=== PATIENT | male | born 1995 | race Caucasian/White ===

== ENCOUNTER 2018-03-16 05:13 | Inpatient (IN) | payer BC ==
[2018-03-16] MEDS ORDERED: NS 2,000 ML IV ONE (05:25)
--- NOTE | 2018-03-16 05:29 | EDPHY ---
H & P Source: Patient, Police, EMS Time Seen by Provider: 03/16/18 05:26 HPI/ROS: HPI CHIEF COMPLAINT: Polysubstance overdose. M1 hold by police. SI. HISTORY OF PRESENT ILLNESS: 22-year-old male, unknown medical history presents emergency room by EMS with police on M1 hold for suicidal ideation. According to EMS and police they received a text stating that he was going to commit suicide. They make contact with the patient. He appeared highly intoxicated with alcohol, possibly other substance including Xanax, Adderall, Lamictal. Patient arrives to the emergency room is noted be tachycardic in the 140s to 150s, he slurring his speech, he is very large dilated pupils equal minimally reactive light approximately 9 mm minimally reactive light equal. Also has some rotary nystagmus on exam. He is not rigid. He has noted be tachycardic lying comfortably in resting in bed however appears to be highly intoxicated. Past Medical History: Unknown medical history Past Surgical History: Unknown surgical history Social History: Unknown at this time Family History: Unknown ROS REVIEW OF SYSTEMS: Limited due to patient's mental state intoxication Exam Constitutional intoxicated, smells of alcohol, slurring speech triage nursing summary reviewed, vital signs reviewed, sleepy vital signs noted be tachycardic. Eyes 9 mm equal however minimally reactive to light with some rotary nystagmus on exam HENT normal inspection, atraumatic, moist mucus membranes, no epistaxis, neck supple/ no meningismus, no raccoon eyes. Respiratory clear to auscultation bilaterally, normal breath sounds, no respiratory distress, no wheezing. Cardiovascular tachycardic without murmur regular rhythm, no murmur, no edema, distal pulses normal. Gastrointestinal soft, non-tender, no rebound, no guarding, normal bowel sounds, no distension, no pulsatile mass. Genitourinary no CVA tenderness. Musculoskeletal no rigidity, no midline vertebral tenderness, full range of motion, no calf swelling, no tenderness of extremities, no meningismus, good pulses, neurovascularly intact. Skin not flushed, pink, warm, & dry, no rash, skin atraumatic. Neurologic alert and orient x1 at this time moves everything appropriately. Not rigid. Differential Diagnosis: Includes but is not limited to in a particular order polysubstance overdose, drug overdose, suicidal ideation, Xanax overdose, alcohol intoxication, overdose on Lamictal, Adderall intoxication. 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 He will need medical evaluation medical clearance 1st. Watch closely for sedation and/or seizures. Re-evaluation: ED x-ray chest one view negative for acute cardiopulmonary disease. Interpreted by myself. 0601: Patient re-evaluated this time he is tachycardic 119. However protecting his airway. Responds to verbal stimuli. EKG interpretation by me on record in [employer] system. Impression time of EKG 5:59 a.m., sinus tach 120 left posterior fascicular block. Intervals are appropriate. No signs of acute ischemia. 0700: Patient here with polysubstance overdose. Lab work reviewed negative CT med if and salicylate level. Urine drug screen pending. Alcohol level pending. Patient is tachycardic, and intoxicated with large pupils equal, minimally reactive tonight. Patient will need more time to sober and will need to be re-evaluated. Once medically cleared he can have a mental health evaluation. Signed over at 7:[address] Buckner. (Skinny Garcia) Constitutional: Initial Vital Signs Temperature (C) 37.1 C 03/16/18 05:12 Heart Rate 130 H 03/16/18 05:12 Respiratory Rate 16 03/16/18 05:12 Blood Pressure 153/84 H 03/16/18 05:12 O2 Sat (%) 93 03/16/18 05:12 O2 Delivery Mode Room Air O2 (L/minute) 2 Allergies/Adverse Reactions: No Known Allergies Allergy (Unverified 03/17/18 08:40) Home Medications: Medication Instructions Recorded ALPRAZolam [Alprazolam] 2 mg PO BID 03/16/18 Dextroamphetamine/Amphetamine 30 mg PO TID 03/16/18 [Adderall 30 mg Tablet] Zolpidem Tartrate [Ambien 5MG (*)] 10 mg PO HS 03/16/18 lamoTRIgine [LaMICtal] 75 mg PO DAILY 03/16/18 Medical Decision Making Other Provider: I assumed care at 0700 - Dr. Garcia and I re-evaluated the patient together. He is protecting his airway, but quite altered, with somewhat unusual U-shaped semi-rotatory nystagmus noted. We will continue to observe in the ED. 0930: Re-examined patient. He appears somewhat improved, and is able to answer questions. He tells me took only vodka and Xanax. His nystagmus-like eye movements seem to have ceased. Will continue to monitor. 1320: Re-examined patient. He is still extremely altered and intoxicated. Still believes he is in his own apartment and does not know what happened. He denies drug use other than alcohol and Xanax, but alcohol level on arrival was negative. 14:25 Plan to admit patient as he is still acutely altered. Consulted with hospitalist service. Dr. Ghotra accepts admission for overdose, altered mental status. He is on an M1 hold by police. Patient will be admitted to ICU at this time for further management and one-on-one observation. (Dario Buckner) - Data Points Laboratory Results: Laboratory Results 03/16/18 05:00 03/16/18 05:00 Medications Given: Sodium Chloride (Ns) 1,000 mls @ 100 mls/hr IV CONT ATUL Stop: 09/12/18 15:29 Last Admin: 03/17/18 00:50 Dose: 1,000 mls Discontinued Medications Sodium Chloride (Ns) 2,000 mls @ 0 mls/hr IV EDNOW ONE; Wide Open PRN Reason: Protocol Stop: 03/16/18 05:26 Last Admin: 03/16/18 05:35 Dose: 2,000 mls Influenza Virus Vaccine Quadrival (Flulaval Quad [id number] (6mo+)) 0.5 ml IM .ONCE ONE Stop: 03/17/18 08:18 Last Admin: 03/17/18 08:40 Dose: 0.5 ml Departure - Departure Disposition: [facility] Clinical Impression: Polysubstance overdose Qualifiers: Encounter type: initial encounter Injury intent: intentional self-harm Qualified Code(s): T50.902A - Poisoning by unspecified drugs, medicaments and biological substances, intentional self-harm, initial encounter Condition: Serious
[2018-03-16 05:32] LABS: PLATELET COUNT 294 10^3/uL (150-400)
[2018-03-16 05:43] LABS: INR 0.9 (0.83-1.16); PROTIME(PATIENT) 12.4 SEC (12.0-15.0)
[2018-03-16] MEDS ORDERED: ONDANSETRON DISINTEGRATING 4 MG TAB PO PRN (15:29)
[2018-03-16] MEDS ORDERED: IBUPROFEN 200 MG TAB PO PRN (15:29)
[2018-03-16] MEDS ORDERED: ONDANSETRON 4 MG/2 ML VIAL IVP PRN (15:29)
[2018-03-16] MEDS ORDERED: LORazepam 2 MG/ML INJ IVP PRN (15:29)
[2018-03-16] MEDS ORDERED: ACETAMINOPHEN 325 MG TAB PO PRN (15:29)
[2018-03-16] MEDS ORDERED: PROMETHAZINE HCL 25 MG/ML INJ IVP PRN (15:29)
[2018-03-16] MEDS ORDERED: NS 1,000 ML IV SCH (15:30)
--- NOTE | 2018-03-16 16:18 | PDGENHP ---
History and Physical - Chief Complaint suicide attempt - History of Present Illness 22 yo M with no known PMH brought in by police on M1 hold after texting 911 that he was going to try to kill himself. This history is severely limited by patients somnolence and ongoing intoxication. He was able to state to me that he doesn't remember why he overdosed and was not able to tell me what he took specifically, but did state that he only took the medications he was prescribed by his doctor along with vodka. He asked what his KRISTOPHER was as he has a KRISTOPHER at home and wants to know if it was correct in the level it obtained. He denies any pain, nausea, vomiting, numbness or weakness. He denies active suicidal ideation currently. His pupils were noted to be very dilated and he was asked specifically if he took any hallucinogens or cold medicine. History Information - Allergies/Home Medication List Allergies/Adverse Reactions: Unable to Assess Allergy (Unverified 03/16/18 15:21) Home Medications: ALPRAZolam [Alprazolam] 2 mg PO BID 03/16/18 [Last Taken Unknown] Dextroamphetamine/Amphetamine [Adderall 30 mg Tablet] 30 mg PO TID 03/16/18 [ Last Taken Unknown] Zolpidem Tartrate [Ambien 5MG (*)] 10 mg PO HS 03/16/18 [Last Taken Unknown] lamoTRIgine [LaMICtal] 75 mg PO DAILY 03/16/18 [Last Taken Unknown] I have personally reviewed and updated: family history, medical history, social history, surgical history Past Medical History: unobtainable 2/2 patients mental status - Past Medical History Additional medical history: unobtainable 2/2 patients mental status - Family History Additional family history: unobtainable 2/2 patients mental status - Social History Smoking Status: Unknown if ever smoked Additional social history: unobtainable 2/2 patients mental status Review of Systems Review of Systems: unobtainable 2/2 patients mental status Physical Exam Physical Exam: Temp Pulse Resp BP Pulse Ox 37.1 C 101 H 15 144/82 H 94 03/16/18 05:12 03/16/18 15:54 03/16/18 15:54 03/16/18 15:54 03/16/18 15:54 Constitutional: no apparent distress, appears nourished Eyes: PERRL, anicteric sclera, other (pupils significantly dilated) Ears, Nose, Mouth, Throat: moist mucous membranes, hearing normal Cardiovascular: regular rate and rhythym, no murmur, rub, or gallop, No edema Respiratory: no respiratory distress, no rales or rhonchi Gastrointestinal: normoactive bowel sounds, soft, non-tender abdomen Genitourinary: no bladder tenderness Skin: warm, normal color Musculoskeletal: full muscle strength, no muscle tenderness Neurologic: CN II-XII Intact, No AAOx3, No weakness, No numbness Psychiatric: encephalopathic Lab Data & Imaging Review 03/16/18 05:00 03/16/18 05:00 WBC 7.61 10^3/uL (3.80-9.50) 03/16/18 05:00 RBC 5.81 10^6/uL (4.40-6.38) 03/16/18 05:00 Hgb 17.7 g/dL (13.7-17.5) H 03/16/18 05:00 Hct 51.3 % (40.0-51.0) H 03/16/18 05:00 MCV 88.3 fL (81.5-99.8) 03/16/18 05:00 MCH 30.5 pg (27.9-34.1) 03/16/18 05:00 MCHC 34.5 g/dL (32.4-36.7) 03/16/18 05:00 RDW 12.4 % (11.5-15.2) 03/16/18 05:00 Plt Count 294 10^3/uL (150-400) 03/16/18 05:00 MPV 9.3 fL (8.7-11.7) 03/16/18 05:00 Neut % (Auto) 62.2 % (39.3-74.2) 03/16/18 05:00 Lymph % (Auto) 29.0 % (15.0-45.0) 03/16/18 05:00 [place] % (Auto) 7.5 % (4.5-13.0) 03/16/18 05:00 Eos % (Auto) 0.8 % (0.6-7.6) 03/16/18 05:00 Baso % (Auto) 0.4 % (0.3-1.7) 03/16/18 05:00 Nucleat RBC Rel Count 0.0 % (0.0-0.2) 03/16/18 05:00 Absolute Neuts (auto) 4.73 10^3/uL (1.70-6.50) 03/16/18 05:00 Absolute Lymphs (auto) 2.21 10^3/uL (1.00-3.00) 03/16/18 05:00 Absolute Monos (auto) 0.57 10^3/uL (0.30-0.80) 03/16/18 05:00 Absolute Eos (auto) 0.06 10^3/uL (0.03-0.40) 03/16/18 05:00 Absolute Basos (auto) 0.03 10^3/uL (0.02-0.10) 03/16/18 05:00 Absolute Nucleated RBC 0.00 10^3/uL (0-0.01) 03/16/18 05:00 Immature Gran % 0.1 % (0.0-1.1) 03/16/18 05:00 Immature Gran # 0.01 10^3/uL (0.00-0.10) 03/16/18 05:00 PT 12.4 SEC (12.0-15.0) 03/16/18 05:00 INR 0.90 (0.83-1.16) 03/16/18 05:00 APTT 27.5 SEC (23.0-38.0) 03/16/18 05:00 Sodium 140 mEq/L (135-145) 03/16/18 05:00 Potassium 4.0 mEq/L (3.5-5.2) 03/16/18 05:00 Chloride 103 mEq/L (97-110) 03/16/18 05:00 Carbon Dioxide 27 mEq/l (22-31) 03/16/18 05:00 Anion Gap 10 mEq/L (6-14) 03/16/18 05:00 BUN 16 mg/dL (7-23) 03/16/18 05:00 Creatinine 1.0 mg/dL (0.7-1.3) 03/16/18 05:00 Estimated GFR > 60 03/16/18 05:00 Glucose 101 mg/dL (70-100) H 03/16/18 05:00 Calcium 9.9 mg/dL (8.5-10.4) 03/16/18 05:00 Magnesium 2.0 mg/dL (1.6-2.3) 03/16/18 05:00 Total Bilirubin 0.6 mg/dL (0.1-1.4) 03/16/18 05:00 Conjugated Bilirubin 0.3 mg/dL (0.0-0.5) 03/16/18 05:00 Unconjugated Bilirubin 0.3 mg/dL (0.0-1.1) 03/16/18 05:00 AST 38 IU/L (17-59) 03/16/18 05:00 ALT 54 IU/L (21-72) 03/16/18 05:00 Alkaline Phosphatase 68 IU/L (38-126) 03/16/18 05:00 Troponin I < 0.012 ng/mL (0.000-0.034) 03/16/18 05:00 Total Protein 8.3 g/dL (6.3-8.2) H 03/16/18 05:00 Albumin 5.3 g/dL (3.5-5.0) H 03/16/18 05:00 Lipase 46 IU/L (23-300) 03/16/18 05:00 Salicylates < 1.0 mg/dL (2.0-20.0) L 03/16/18 05:00 Acetaminophen < 10 mcg/mL (10-30) L 03/16/18 05:00 Ethyl Alcohol < 10 mg/dL (0-10) 03/16/18 05:00 Visualized and Interpreted Chest x-ray results: Yes Chest X-Ray results: no infiltrate Visualized and Interpreted EKG results: Yes EKG Interpretation: Positive for: normal sinsus rhythm Assessment & Plan Assessment: Polysubstance overdose (Acute) 22 yo M with unknown PMH presenting with what sounds like intentional overdose # polysubstance overdose: somewhat unclear exactly what patient took but presumably includes vodka, xanax, lamictal, adderall and ambien based on his home medications. Patient is arousable, HD stable, protecting his airway, lab studies normal and no focal neurological findings however remains overtly intoxicated on exam with inability to ambulate safely or answer questions appropriately. At this point, patient being held on M1 hold and will be monitored in ICU overnight pending medical clearance for TLC evaluation. Monitoring rhythm on telemetry, no qtc prolongation currently. # suicide attempt: presumed intentional overdose based on patients contacting 911 stating he was going to kill himself, really unable to answer questions about that currently but denies active suicidality currently , as above # volume depletion: appears hemoconcentrated by labs, altered and not really able to take po currently, will continue gentle IVF overnight # observation status Patient new to my care. Old records reviewed and summarized as above. Care plan reviewed with ER doctor including plans for observation overnight.
--- NOTE | 2018-03-17 07:51 | CPEKG ---
Test Reason : OPEN Blood Pressure : / mmHG Vent. Rate : 120 BPM Atrial Rate : 120 BPM P-R Int : 157 ms QRS Dur : 094 ms QT Int : 323 ms P-R-T Axes : 073 146 044 degrees QTc Int : 457 ms Sinus tachycardia Left posterior fascicular block Anterior infarct, old Confirmed by Skinny Garcia ([id number]) on 03/17/2018 7:50:58 AM Referred By: Confirmed By:Skinny Garcia
--- NOTE | 2018-03-17 09:19 | PDMN ---
Medical Necessity Medical necessity: MCG M153 drug ingestion or OD A-1 day : intentional OD pt on M1 hold danger to self, AMS, urinary retention with associated pupillary dilation - strong concern for anticholinergic toxicity. anticipate > 2 MN ongoing med nec care, further monitoring eval and tx
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
--- NOTE | 2018-03-18 11:24 | ASMTTLCEVL ---
TLC Evaluation - Basic Information Evaluation Start Date and 03/17/2018 12:00 PM Time Hospital Status Answers: M1 Hold 72-hr M1 Hold Start Date 03/16/2018 04:30 AM and Time Patient statement Notes: "It was New Years. I wasn't doing anything. Usually, I'm not a seasonal depressive type of person. First time I acted on it even though I assumed I would survive due to my high tolerance." Narrative Notes: Pt is a 22 year old male who presented initially to [facility] ED on an M1 on 03/16/17 hold by [employer] and EMS. According to EMS and police, they received a text from pt stating that he was going to commit suicide. They made contact with the pt who appeared highly intoxicated with alcohol, possibly other substances, including Xanax, Adderall and Lamictal. Per ED notes 03/16/17: Pt arrives to the ED is noted to be tachycardia in the 140s to 150s, he is slurring his speech, he has very large dilated pupils. Pt was transferred to ICU. Pt reports he has had SI off and on since his brain injury at age 13. Pt reports his SI is not chronic but states, " It depends. If I have a busy day, I don't think about it but with days like this, when I am just sitting in a room then I feel sad." Pt reports he can't identify any one stressor that led up to his overdose or exactly what he took. 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 Mother's phone number was disconnected and father's phone number's vmail has not been set up. Vmessage was left with psychiatrist. Dr. Van Kern. Diagnosis History Notes: Pt reports a hx of ADHD, depression and anxiety. Prior suicide attempts Notes: Pt denied any SA but stated he has had SI off and on for the past 9 years . Prior hospitalizations Notes: Pt denied any hospitalizations but stated [facility] Treatment Responses Notes: Unknown History of violence Notes: Pt denied any HI. Therapist: None Psychiatrist: Dr Van Kern Medications (name, dosage, route, freq uency) Notes: Adderall 30mg TID; Xanax 4mg; Ambien 10mg PRN; Allergies/Reaction Notes: nka Sleep Notes: wnl Appetite Notes: Pt reported he initially lost a large amount of weight while taking the adderall but has since regained 20 lbs Medical/Surgical history Notes: Pt reports he has sustained approx 6-7 concussions, 4 LOC. Pt reports a brain injury at age 13 while playing hockey and falling into a brick wall head first. Substance use history (frequency, intensity, his tory, duration) Notes: Pt denied any drug use but reports etoh use about 3x a week and states he drinks about 5 drinks and drinks "whatever." Pt reports 5 drinks just gets him, "buzzed" and states he believes it's due to his high tolerance. Utox positive for amphetamines and benzodiazepines and his bal was.0. Family composition Notes: Pt reports his father lives in [place]. Pt did not say where his mother lives but states she has a lucBtiques business. Pt reports he has 1 step sister at [facility] and 1 step brother. He reports a good relationship with his family. Need for family Answers: No participation in patient's care Family psychiatric/substance abuse history Notes: Pt reports his paternal uncle may have had a gambling problem. No other mental illness noted. Developmental history Notes: Pt reports he was dx with ADHD at age 5 or 6. He reports he sustained multiple concussions as a child with LOC. Pt's parents when he was 5 and he was forced to see a therapist which he resented. Pt reports he felt happy that his parents because he was tired of hearing them fight all the time. Pt denied any childhood abuse. Abuse concerns Answers: None Marital status/children Notes: Unmarried, no children. Living situation Notes: Pt lives in [place] with two roommates. Sexual history/orientation Notes: Heterosexual. Peer support/family strengths Notes: Pt reports having a good peer support system. He reports having two good friends. Education level/history Notes: Pt reported he completed his GED. Work history Notes: Pt is not currently working. 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 He stated they wanted him to manage the [employer] but he was not interested. Notes: None reported. Legal Notes: None reported. Congregational/Spiritual Notes: Pt reports he is agnostic. Leisure Notes: Pt reports he enjoys playing video games. Collateral Notes: Dr. Jeremy Kern Per Dr. Kern pt has tx resistant depression and is currently on a lamictal trial at 150mg. Dr. Araujo states pt has had success on the adderall and xanax. Dr. Kern stated they have tried and failed with multiple meds. Pt at baseline has some speech latency but is conversational Dr. Kern has been seeing pt since August 2017 and saw pt last week on 03/11/18 and stated he did not appear suicidal at that time. [facility] met with pt.'s father, Ralph. Father expressed concern about pt.'s mental health and safety and was supportive of pt.'s admission for additional MH treatment. Patient's strengths Answers: Intelligent (Please select at least TWO strengths): Willingness [facility] Evaluation - Mental Status Exam Appearance: Answers: Appropriate Eye Contact: Answers: Good/Direct Mood: Answers: Euthymic Affect: Answers: Indifferent Behavior: Answers: Cooperative Sedated Speech: Answers: Relevant Irrelevant Logical Clear Slowed Slurred Soft Thought Process: Answers: Oriented Distracted Intact Insight: Answers: Fair Judgement: Answers: Poor Manic Signs/Symptoms Answers: Impulsivity Irritability Depression Answers: Difficulty Concentrating Signs/Symptoms: Diminished Interest Flat Affect Hopelessness Sad Mood Withdrawn Anxiety Signs/Symptoms Answers: Generalized Anxiety Hallucinations: Answers: None Pt reported to have Answers: Yes suicidal/self-injuring ideation/behavior? Pt reported to be making Answers: Yes suicidal/self-injuring threats? Pt reported to have Answers: No aggression/assault ideation/behavior? Pt reported to be making Answers: No aggression/assault threats? Ideation/behavior is Answers: Yes chronic? Patient has a specific Answers: Yes plan? Pt has access to means to Answers: Yes execute the plan? Ideation involves Answers: Yes serious/lethal intent? Ideation has Answers: No delusional/hallucinatory content? History of Answers: Yes suicidal/self-injuring ideation, behavior, or threats? History of Answers: No aggressive/assaultive ideation, behavior, or threats? History of serious Answers: No physical harm to self/others while in treatment setting? [facility] Evaluation - Suicide/Homicide Risk Suicide Risk Factors: Answers: < 20 or > 40 Years of Age Agitation Financial Difficulties Flat Affect Hopelessness Impulsivity Major Depression Single None Homicide/violence risk Answers: None factors: Current Suicidal Answers: Yes Ideation? Current Suicide Ideation Pt reports he has SI off and on for the past 9 Frequency: years. pt is denying Si at this time. Current Suicidal Ideation Answers: Yes in the Past 48 Hours? Current Suicidal Ideation Answers: Yes in the Past Month? Current Suicidal Answers: Yes Ideation, Worst Ever? Suicide Internal Answers: Absence of Psychosis Protective Factors: Suicide External Answers: Social Support Protective Factors: Ranking of patient's Answers: Severe suicidal risk: Ranking of patient's Answers: Low homicidal risk: TLC Evaluation - Wrap-up BDI Total Score: 26 BDI Question #2 Score: 1 BDI Question #9 Score: 2 BSS Total Score: 6 AXIS I Diagnosis (include DSM-V and ICD-10 codes), must also be entered in [employer], which is the source of truth. Notes: Attention Deficit/Hyperactivity Disorder combined presentation 314.01 (F90.2) Major Depressive Disorder, single episode, severe 296.23 (F32.2) In consultation with [facility] Hospitalist, Gracie Rich MD and on-call clinician, Delroy Saha APN, both concurred that pt appears to meet 27-65 criteria requiring psychiatric hospitalization as pt appears to be at risk of harm to self/others/gravely disabled due to a mental illness condition. Pt was given the 3N prohibited belongings list while in the ED. Evaluation End Date and 03/17/2018 02:00 PM Time (HH:[facility]): Date Signed: 03/18/2018 11:23 AM Electronically Signed By:Christina Chang
--- NOTE | 2018-03-18 11:25 | ASMTTCLDSP ---
TLC Discharge Disposition Disposition: Answers: Admit Disposition Notes: Notes: In consultation with [facility] Hospitalist, Gracie Rich MD and on-call clinician, Delroy Saha APN, both concurred that pt appears to meet 27-65 criteria requiring psychiatric hospitalization as pt appears to be at risk of harm to self/others/gravely disabled due to a mental illness condition. Pt was given the 3N prohibited belongings list while in the ED. Discharge Concerns/Recommendations: Notes: Admit to 3N Was patient given the Answers: Yes Inpatient Behavioral Health Prohibited Belongings List while in the ED? For inpatient Delroy Saha APN admission, the following psychiatrist agreed to accept patient for admission to Behavioral Health ([facility]): Type of Hold: Answers: M1/72-hour Hold Date Signed: 03/18/2018 11:25 AM Electronically Signed By:Christina Chang
--- NOTE | 2018-03-18 15:10 | ASMTCMCOM ---
CM Note CM Note Notes: Patient will be admitted to for inpatient behavioral health care. Transport arranged for 4:00PM today via [facility]. PCS form and face sheet left at the assistant front end manager for [facility]. No further needs. Date Signed: 03/18/2018 03:09 PM Electronically Signed By:Malka Hoffman LCSW
[2018-03-18 15:44] VITALS: BP 145/90
== END 2018-03-18 15:52 | DRG 918 ==
LOC: EDUNIT# → OBSVTOIN 14:40 → EEVIPCON 14:40 → F2N 14:40
PROVIDERS: ADMIT Internal Medicine; ATTEND Internal Medicine
DX: T44.3X2A Poisoning by other parasympatholytics [anticholinergics and antimuscarinics] and spasmolytics, intentional self-harm, initial encounter (principal); T51.0X2A Toxic effect of ethanol, intentional self-harm, initial encounter; T42.4X2A Poisoning by benzodiazepines, intentional self-harm, initial encounter; T42.72XA Poisoning by unspecified antiepileptic and sedative-hypnotic drugs, intentional self-harm, initial encounter; R33.0 Drug induced retention of urine; F32.9 Major depressive disorder, single episode, unspecified; F90.9 Attention-deficit hyperactivity disorder, unspecified type; F41.9 Anxiety disorder, unspecified; Z23 Encounter for immunization
CPT/HCPCS: 80305; 80307; 97161-GP; 97165-GO; G0008; G0480

== ENCOUNTER 2018-03-18 16:10 | Inpatient (IN) | payer BC ==
[2018-03-18] MEDS ORDERED: MAG HYDROX/AL HYDROX/SIMETH 30 ML UDCUP PO PRN (17:12)
[2018-03-18] MEDS ORDERED: NICOTINE POLACRILEX 2 MG GUM B PRN (17:12)
[2018-03-18] MEDS ORDERED: OLANZapine 10 MG TAB PO PRN (17:12)
[2018-03-18] MEDS ORDERED: ACETAMINOPHEN 325 MG TAB PO PRN (17:12)
[2018-03-18] MEDS ORDERED: MAGNESIUM HYDROXIDE 30 ML UDCUP PO PRN (17:12)
[2018-03-18] MEDS ORDERED: chlordiazePOXIDE 25 MG CAP PO PRN (17:16)
--- NOTE | 2018-03-19 09:24 | ASMTBHMTP ---
Master Treatment Plan Master Treatment Plan Answers: Depressed Mood with for: Suicidal Ideation Date: 03/19/2018 Diagnosis on Admission: Polysubstance overdose Expected length of stay: 3-5 Days Reason for admission: Notes: Per TLC Evaluation - Pt. is a 22 year old male who presented initially to [facility] ED on an M1 on 03/16/17 hold by [employer] and EMS. According to EMS and police, they received a text from pt. stating that he was going to commit suicide. They made contact with the pt. who appeared highly intoxicated with alcohol, possibly other substances, including Xanax, Adderall and Lamictal. Per ED notes 03/16/17: Pt. arrives to the ED is noted to be tachycardia in the 140s to 150s, he is slurring his speech, he has very large dilated pupils. Pt. was transferred to ICU. Pt. reports he has had SI off and on since his brain injury at age 13. Pt. reports his SI is not chronic but states, "it depends. If I have a busy day, I don't think about it but with days like this, when I am just sitting in a room then I feel sad. " Pt. reports he can't identify any one stressor that led up to his overdose or exactly what he took. Pt. stated he has been waning away from his friends and has had some financial stress but stated, "Financial stress wouldn't make me attempt suicide." Pt. denied SI just stated, "I'd rather not be in this hospital." This script writer attempted to reach out to his parents. Mother's phone number was disconnected and father's phone's number's vmail has not been set up. Vmessage was left with psychiatrist. Dr. Van Kern. Patient's stated presenting problems: Notes: Pt. stated he "had a suicidal episode" adding he overdosed. Patient's goals for treatment: Notes: "To get out" and "to manage myself better" Patient's strengths: Notes: "plant maintenance engineer, master of none" and "like math" Identify supports outside of hospital: Notes: Dad, sister, step-mother, mother, and friends Discharge criteria: Notes: Suicidal ideation will resolve and patient will have a plan to safely manage recurrent suicidal ideation. Initial disposition plan/considerations: Notes: To return home and to his job with [employer] Master Treatment Plan Required Signatures Psychiatrist signature: Answers: Davidson Navarro MD: RN on-shift signature: Answers: RN: Patient signature: Answers: Patient: Date Signed: 03/19/2018 09:24 AM Electronically Signed By:Beatrice Orozco
--- NOTE | 2018-03-19 16:08 | ASMTBHFAM ---
Notes Note: Notes: Pt's step-mother, Rach ([phone]) called and left a message for CC. [facility] stated she took pictures of the pt's suicide note and rough drafts. [facility] stated pt. appeared to have stocked his medications, stating pt's attempt was "pre meditated". [facility] stated she recently pt's FOC and this has been difficult for the pt. [facility] stated pt. had genetic testing and is an "ultra metabalizer" adding he has a high tolerance to medications. [facility] stated pt. has "treatment resistive depression" and asked if ketamine was going to be considered for the pt. [facility] stated pt. has an "addictive behavior" and is "possibly an alcoholic". [facility] stated pt. is "very intelligent" adding the pt is also "very sneaky". [facility] stated she is "extremely worried" about the pt. Date Signed: 03/19/2018 04:08 PM Electronically Signed By:Beatrice Orozco
--- NOTE | 2018-03-19 16:13 | ASMTCMCOM ---
CM Note CM Note Notes: Pt and CC completed MTP, signed and placed in chart. Pt. reports feeling "mixed bad" about surviving his suicide attempt. Pt. stated he "felt a lot of guilt and shame". Pt. stated his goal it "to get out" adding "I know I'm not a danger to myself or others". Pt. stated he drinks alcohol "occasionally" adding it depends on if he is hanging out with friends. Pt. stated he usually drinks 3-4 times a week and usually has "4ish to 5" drinks per sitting. Pt. stated "I don't think it's an issue" about his drinking habits. Pt. denied using THC or other substances. Pt. stated he is "not a fan of group therapy", CC encouraged pt to attempt to attend groups. Pt. presents as flat, alert, calm, lacking insight, fair eye contact, and cooperative. Staff report pt. sleeping 7 hours and not wanting to take any medications. Date Signed: 03/19/2018 04:13 PM Electronically Signed By:Beatrice Orozco
--- NOTE | 2018-03-19 19:05 | BAPA ---
DATE OF SERVICE: 03/19/2018 CHIEF COMPLAINT: "It was New Year's, I wasn't doing anything. Usually, I am not a seasonal depressive type of person, first time I acted on it, even though I assumed I would survive due to my high tolerance." HISTORY OF PRESENT ILLNESS: The patient is a 22-year-old man who presented to the emergency room by EMS with police on an M1 hold. The police received a text stating that the patient was going to commit suicide. They made contact with the patient. He appeared highly intoxicated with alcohol, possibly other substances, including his prescription medications, Xanax, Adderall, and Lamictal. In the emergency room, he was tachycardic, slurred speech, dilated pupils, minimally reactive to light, rotary nystagmus, all of which were likely the result of intoxication/polysubstance overdose. The patient was admitted to the ICU. Dr. Ghotra saw the patient in the ICU and said that her ability to collect collateral information and the history from the patient was severely limited by the patient's somnolence and intoxication. He said that he does not remember why he overdosed and was not able to tell Dr. Ghotra specifically what he took. He only knows that he took the medicines that were prescribed by his outpatient psychiatrist along with vodka. The patient was discharged from the ICU on 03/18/2018 and transferred to the inpatient Behavioral Health Unit on . Prior to his transfer, he was seen by the [facility] coil winding machines set up mechanic, who noted that the patient stated that he had suicidal thoughts on and off since his brain injury when he was 13 years old. He says that he does not always have thoughts of suicide. He told the [facility] coil winding machines set up mechanic "it depends if I have a busy day. I don't think about it, but with days like this, when I'm just sitting in a room, then I feel sad." The patient told the coil winding machines set up mechanic that he could not identify any single stressor that led up to his overdose. He says that he has been more withdrawn. He has had less contact with his friends. He says that he has had some financial stress lately. He says that it was a combination of all those things weighing on his mind that made him feel more depressed and pushed him over the edge and led him to act on his impulsive thoughts of overdosing. When this MD met with the patient on the inpatient Behavioral Health Services Unit, he was pleasant, calm, cooperative. He was alert and oriented x4. He denied any symptoms of benzodiazepine withdrawal. He has been off benzodiazepines for 3 days, although his benzodiazepine level was quite high. While he was in the ICU, they susan blood. He still does not remember how many pills or how much medication he took. Says that he now feels guilty about his overdose. When MD asked how the patient felt about surviving his suicide attempt, he said "it was a mixed bag." He says that he is not sure that he will never do it again, but he says that he is not having any thoughts currently about ending his life or wanting to harm himself. He says "I just want to be me." When MD asked the patient what his thoughts about medications are, he says "I don't want to take any meds for anything." The patient states that he had previously talked with his outpatient psychiatrist, Jeremy Kern, about tapering him off medications. He said that they had made a start in reducing his total daily dose of Xanax from 4 mg to 3-1/2 mg, but he says I know that is "not much of a difference." He says that he would like to try "staying off medications" in the short term, but says that in the group home, "I probably need to be on some type of mood stabilizer." He is open to the possibility of going back on Lamictal, but he says "not right now." PAST PSYCHIATRIC HISTORY: The patient states that he has had multiple concussions as an adolescent from playing hockey. He has had 6-7 concussions where 4 episodes resulted in loss of consciousness. He reports a brain injury when he was 13 years old, while playing hockey and falling into a brick wall head first. He says that he was treated at [facility]. Says that he had physical therapy, but he also had psychological therapy as an outpatient after his brain injury. Says that he has never felt right since his brain injury. Says that he feels like it caused a personality change, and it has made him more emotionally labile in his opinion. He says that he has also been having suicidal thoughts off and on for the last 9 or 10 years. The patient denies any previous suicide attempts and no prior psychiatric hospitalizations. His current outpatient psychiatrist is Jeremy Kern. The [facility] coil winding machines set up mechanic did speak with Dr. Kern by phone. Dr. Kern noted that the patient has treatment resistant depression which has not responded well to previous trials of medications, but Dr. Kern did not specify which ones. He says the patient has currently been prescribed Lamictal 150 mg p.o. daily. He says that the patient has also had success on Adderall and Xanax. Dr. Kern has been seeing the patient since August 2017. The last time he saw him was on 03/11/2018, said the patient had not expressed suicidal ideation, intent, or plans to him in the past. ALLERGIES: The patient has no known drug allergies. MEDICATIONS: The patient was being prescribed Adderall 30 mg p.o. t.i.d., Xanax 2 mg p.o. b.i.d., and Lamictal 150 mg p.o. daily. According to the patient's mother, he has not been compliant with any of his medications. He has been stockpiling his medications or just intentionally not taking them and not telling anybody. DATA REVIEW: His labs were done in the [facility] ED on 03/16/2018. The patient 's white cell count was 7.61, hemoglobin 17.7, hematocrit 51.3, platelet count 294. PT was 12.4. INR was 0.9. Sodium was 140, potassium 4.0, BUN 16, creatinine 1.0, glucose 101, calcium 9.9, magnesium 2.0, total bilirubin 0.6, AST 38, ALT 54, alkaline phosphatase 68. Troponins were undetected. Lipase was 46. His urine drug screen was positive for amphetamines, positive for benzodiazepines, negative for all other drugs of abuse. Negative for salicylates and acetaminophen. On 03/16/2018, they did a quantitative level on his amphetamines. They were 14,500 and the cut off is 25 ng/mL, and his benzodiazepine level was 8000 ng/mL and the cutoff is 200. PAST MEDICAL HISTORY: The patient has significant prior history of 6 to 7 concussions with 4 episodes of loss of consciousness. The most severe was when he was 13 years old, playing hockey, fell into a brick wall head first. He was treated at [facility] for a TBI. Does not report any other significant medical history. SOCIAL HISTORY: The patient's parents when he was 5 years old. He says he was forced to see a therapist which he resented. He says he felt happy that his parents were because he was tired of hearing them fight all the time. He denied any physical, emotional, or sexual abuse. He was diagnosed with ADHD when he was 5 or 6 years old. Currently, his father lives in [place]. He does not know where his mother lives. He says he has 1 stepsister at [facility] and 1 stepbrother. He claims to have a good relationship with his family. He completed his GED. He does not say why he did not graduate from high school. 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 FAMILY HISTORY: He says that a paternal uncle had a gambling problem, but there were no other incidents of mental illness or substance use disorder in the family that he reports. SUBSTANCE USE HISTORY: Patient denies using illicit drugs. He says that he drinks 3 times a week, 5 or more drinks per occasion. He says that he drinks "whatever." Says that 5 drinks will only just "get me buzzed" because he says I have "a high tolerance." His urine tox screen was positive for both amphetamines and benzodiazepines, both of which he is prescribed by his outpatient psychiatrist. When he came into the emergency department, there was some question about whether or not he was abusing other drugs, including hallucinogens or noar-jyw-rzzuovt cough medicine, because his pupils were so dilated, but he did not disclose any other drug use. TRAUMA HISTORY: Patient denies any history of physical, emotional, or sexual abuse. LEGAL HISTORY: The patient denies any current legal issues. MENTAL STATUS EXAMINATION: This is a tall, thin, well-developed, appropriately groomed male with shoulder length hair, wearing a T-shirt and jeans, sitting in a chair. Alert and oriented x4. His affect is blunted. His demeanor is appropriate. He makes good eye contact. His speech rate and volume are within normal limits. His intellectual function appears to be average. He denies feeling sad, helpless, hopeless, worthless, and anxious. He denies any symptoms of psychosis, including denying auditory and visual hallucinations, and paranoid delusions. There are no signs or symptoms of eve present. He does not have pressured speech, racing thoughts, grandiose delusions, elated or elevated mood. He is currently denying any thoughts, plans, or intents to hurt himself or anyone else. His thought process is linear and goal directed. His insight and judgment are both impaired as evidenced by his recent overdose and drug use. IMPRESSION: 1. 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 2. Substance-induced mood disorder. 3. Amphetamine use disorder, stimulant type, severe. 4. Benzodiazepine use disorder, severe. 5. Alcohol use disorder, severe. 6. Rule out major depressive disorder, unknown severity, without psychotic features. The patient carries this diagnosis from Dr. Kern. 7. Limited social support. 8. History of family conflict. Parents had a contentious relationship. The patient currently has a conflicted relationship with both parents and step- siblings. 9. Precarious employment. 10. Financial problems. PLAN: 1. Admit patient to the inpatient Behavioral Health Services Unit on on an M1 hold. 2. Will monitor closely for safety. The patient is currently not exhibiting any signs of unsafe behavior. He is acting appropriately and he denies any thoughts, plans, or intents to hurt himself or anyone else. 3. We will continue to monitor and observe the patient. He is currently not endorsing feeling sad, helpless, hopeless, worthless, anxious, or suicidal. These were the presenting symptoms that led to admission. 4. The after school caregiver did speak with the patient's mother. The mother reports that she is "extremely worried" about the patient. She says she is worried that "he is an alcoholic." She says that the patient is not entirely forthcoming or telling the truth about his medications and about how he takes them. She says based on what she can tell from the pill bottles that he had at home, that he has not been taking his medications the way he should. She says that she believes that he has been hoarding medications in order to take them as an overdose. She says that she does not believe that he has been taking his Lamictal as prescribed and she is concerned that the patient will say "whatever he needs to say" in order to be discharged from the hospital and might try to kill himself again. Obviously, the treatment team will observe the patient for any signs or symptoms that he might not be truthful in his report of symptoms or his intentions and we will continue to evaluate the patient using the BDI scales, the Depression Inventory scales, the self report, the daily check ins, as well as his conversations with the after school caregiver, the mental health workers, as well as the psychiatrist and nurse practitioner evaluations on a daily basis. Currently, the patient is denying that he is feeling suicidal, but also stating that he does not want to be back on medication. 5. The patient did sign an FLORI for the treatment team to communicate with Dr. Kern. This MD did express concern about the patient leaving the hospital not on any medication, and wondered what Dr. Kern's feedback would be on that. The patient said that he Dr. Kern had discussed weaning him off the medications, but over a period of time, this MD did suggest that might be a better way rather than stopping all medications completely. The patient noted that he wanted to be off medications for now, but would consider going on a mood stabilizer for "long-term treatment." This MD recommended that the treatment team talk to Dr. Kern on Wednesday morning and hold a family meeting prior to discharge to discuss what options for medication treatment, as well as what other treatment options are available, including the possibility of doing a step-down in a residential program or going into an intensive outpatient program. The patient stated that he would consider those options, but he said "I'm not leaning toward that at this time.". 6. The patient is currently on a CIWA protocol to monitor for benzodiazepine withdrawal. He had a very high level, 8000 ng/mL of benzodiazepines on 2018, but he has not received any benzodiazepines. He has not had any benzodiazepines since 03/15/2018, so he is on day 5. So far, he scored 1-2 on the CIWA and it has mostly been for headache which he says has been persistent since his TBI. No other report of any physical complaints or any signs or symptoms of withdrawal. 7. Estimated length of stay is 2-3 days. /[id number]/MODL MTDD
--- NOTE | 2018-03-20 15:12 | ASMTBHFAM ---
Notes Note: Notes: CC spoke with pt's Stepmother, Rach ([phone]). [facility] stated she will email CC pt's detailed suicide notes. [facility] stated pt. stockpiled medications and indicated in his suicide note that he had been reporting to Dr. Kern he had been taking his medications. [facility] stated pt. "doesn't sleep well normally". [facility] stated pt. struggles to keep weight on and recently was down to 140lbs. [facility] stated pt. gets daily headaches from his TBI. [facility] stated after pt's TBI he did not attend school as much and got his GED. [facility] stated pt. used to use pot to help with the daily headaches but stopped because it increased the pt's anxiety. [facility] stated pt.'s biological mother is "not functioning", is homeless and pt. has supported her at times. [facility] stated she recently moved to [place], but visits her children for a week every two weeks. [facility] stated she is willing to fly back to [place] at anytime. [facility] stated she is unsure why pt. is prescribed Adderall, stating the pt has never been diagnosed with ADHD. [facility] stated pt. has been seeing Dr. Kern for the last 6 months, adding pt is unwilling to see a therapist. [facility] stated pt. used to look up to his stepfather and was close, adding pt's stepfather committed suicide by overdose when the pt was 11 years old. [facility] stated in the past, the pt appeared much flatter, wasn't showering, wasn't eating, and wasn't sleeping. [facility] stated FOC removed all alcohol, razor blades and suicide notes from the pt's bedroom. [facility] stated pt. does not have a support network, adding he is not as close with his sibling and step-siblings. [facility] stated her divorce was final a month ago and stated pt. "he got lost" in the divorce and has distanced himself. [facility] stated pt "he is smart and will know what to say and do" to be able to discharge. Date Signed: 03/20/2018 03:11 PM Electronically Signed By:Beatrice Orozco
--- NOTE | 2018-03-20 15:19 | ASMTCMCOM ---
CM Note CM Note Notes: Pt. reports "doing alright". Pt. stated he had "little bit of sleep issues" adding it was "nothing major". Pt. stated he is eating okay, adding he "usualyl have to force self to eat". Pt. reports attending groups. Pt. reports not taking medication at this time, stating "parviz want to stabilize for a bit", and "been on meds for a while". Pt. denied SI, HI, AVH and paranoia. Pt. presents as alert, calm, bit guarded, good eye contact, and cooperative. Staff report pt. sleeping 4 hours and attending groups. Date Signed: 03/20/2018 03:19 PM Electronically Signed By:Beatrice Orozco
--- NOTE | 2018-03-20 17:29 | SOAPPROG ---
SOAP Progress Note Assessment/Plan: Assessment: 22 yo man with h/o several TBI's with associated mood and personality changes. His outpatient psych MD, Dr. Kern, has dx patient with TRD. Patient took OD of psych meds on 03/15/18 and was in ICU before being transferred to on 03/18/18. Plan: 03/20/18 17:13 1. Patient continues to deny any w/d sxs from benzos. His CIWA scores have remained < 2 and he has not needed any Librium. He can likely come off CIWA tomorrow. 2. Patient only slept 4 hrs last night, but says he usually "averages about 6 hrs." 3. CC had long conversation with patient's stepMOC, Jordyn, who recently his FOC (a month ago). Jordyn lives in [place] but comes to [place] every 2 weeks and visits her 2 kids at college in [facility] and [place], and visits Sarbjit. Jordyn said that patient left several "suicide notes" at his apartment. In his notes, patient mentions saving up prescription meds and planning to OD on them. Patient also wrote about where he wants his ashes spread and what songs to play at his [employer] service. Jordyn states patient had great deal of difficulty after his TBI from hockey at age 13. She claims his mood and personality changed significantly, and he had problems completing school. She told CC that patient "stayed home" from school "a lot" and didn't graduate HS. He did get a GED. Jordyn claims patient would "stay home and smoke pot" all day after his accident. She claims he's been doing this since age 13 yo. Jordyn mentioned she patient's FOC at end of last year, and patient had a hard time with the change. She reports he is not particularly close to any of his siblings ( including her 2 children, his step-siblings), and doesn't see his dad that often. Jordyn is the person who talks to the patient the most. The patient's biological MOC is currently "homeless" and Sarbjit has given her money in the past to help her out. 4. Given the premeditated nature of patient's SA, he will likely need to be placed on STC when his mental health hold expires tomorrow. He does not currently want to take any psych meds. This MD thinks it's prudent not to continue to prescribe meds with abuse potential including psychostimulants and benzos. However, MD informed patient that a mood stabilizer or antidepressant would be indicated. MD told patient that treatment team will want to reach out to Dr. Kern on Wednesday to get his input since Dr. Kern mentioned to TLC that patient had been tried on several other meds in the past that didn't seem very effective for his mood. Given what Jordyn said about patient smoking large quantities of THC, the most likely reason his depression didn't respond to treatment was d/t his polysubstance dependence. This issues will need further clarification before a new treatment plan can be developed. 5. Patient is currently on M1. Subjective: Patient stays in his room most of the day reading a book. Staff did encourage him to attend groups. Initially he declined, but MD observed patient go to one in afternoon. MD brought up the issue of medications, and patient repeated that he wanted to "stabilize a bit" without meds. MD reminded patient of risks involved in stopping medication treatment. MD told patient that the treatment team that takes over his care on Wednesday will be reaching out to Dr. Kern and his family to develop a new treatment plan. He said he is OK with that plan, but doesn't think Dr. Kern works on Mondays. Patient's stepmom, Jordyn, who moved to [place] after his dad last month, spoke with CC and provided significant collateral information. She reports patient was saving up prescription meds in order to OD. He also wrote several suicide notes to his family. Jordyn will be sending copies of the notes to later today. Patient is currently denying any SI, but Jordyn is worried he will "say whatever he needs to say" in order to be discharged. Objective: Vital Signs Temp Pulse Resp BP Pulse Ox 36.5 C 90 20 151/83 H 99 03/20/18 05:00 03/20/18 05:00 03/20/18 05:00 03/20/18 05:00 03/20/18 05:00 MSE: Affect: Flat Mood: "OK" TP: Linear TC: Denies any SI/HI Insight/ Judgment: Poor - Time Spent With Patient Time Spent With Patient: 15" - Pending Discharge Pending Discharge Within 24 Hours: No Pending Discharge Within 48 Hours: No ICD10 Worksheet Patient Problems: Problems Problem Status Onset Polysubstance overdose Acute
[2018-03-22] MEDS: ARIPiprazole 5 MG TAB PO SCH (11:49)
--- NOTE | 2018-03-22 12:24 | ASMTBHDC ---
Notes Note: Notes: Family meeting scheduled for Wednesday03/23/18 at 11:30am with pt, , FOC, SMOC and pt's friends. Date Signed: 03/22/2018 12:24 PM Electronically Signed By:Beatrice Orozco
--- NOTE | 2018-03-22 13:25 | SOAPPROG ---
SOAP Progress Note Assessment/Plan: Assessment: Plan: 03/22/18 13:32 Mood: Remains depressed. Will start Abilify 5mg, monitor. Will continue individual, group and milieu psychotherapies. Arrange family meeting for tomorrow if possible. Subjective: Pt seen, discussed with staff. Case reviewed with Dr. Kern. Dr Kern has no specific input, stating pt has not responded to numerous antidepressant trials and he has been focusing on possible Bipolar diathesis. Pt notes benefit from Adderall and Xanax but not Lamictal. He states he doesn't want to take any more "short term meds", however. I reviewed with him options for further treatment of his depression. This included review of roles for antidepressants , mood stabilizers, and atypicals. I also reviewed the potential benefits from ECT and TMS. He prefers a trial of an atypical and I recommended either Rexulti or Abilify. He prefers Abilify. The risks, benefits and alternatives of this are reviewed. Pt's father, mother, step-brother, ex-GF and another friend visited yesterday. Pt notes feeling supported by them. Objective: Vital Signs Temp Pulse Resp BP Pulse Ox 36.5 C 70 14 127/71 H 98 03/22/18 05:00 03/22/18 05:00 03/22/18 05:00 03/22/18 05:00 03/22/18 05:00 - Time Spent With Patient Time Spent With Patient: 55 ICD10 Worksheet Patient Problems: Problems Problem Status Onset Polysubstance overdose Acute
--- NOTE | 2018-03-22 14:36 | ASMTCMCOM ---
CM Note CM Note Notes: Pt. reports feeling "good" adding he got the "right pillow from my family". Pt. stated he slept "better". Pt. stated he finally got a watch, which he finds helpful to have. Pt. stated he is eating well and attending at least three groups a day. Pt. stated he "got the wrong impression from weekend doctor". Pt. stated he would like to start medications today, adding he would like a "long-term anitdepressant". Pt. stated his previous medications "worked as tools", adding he wants a medication for more jail. Pt. stated upon discharge his father will be checking on him often, as he is starting to retire and has more free time. Pt. stated his father lives in [place] Pt. denied SI, HI, AVH and paranoia. Pt. presents as alert, calm, quiet, good eye contact, groomed, and cooperative. Staff report pt. sleeping 7 hours and starting a new medication today. Date Signed: 03/22/2018 02:35 PM Electronically Signed By:Beatrice Orozco
[2018-03-23 06:25] VITALS: BP 126/69
[2018-03-23] MEDS: ARIPiprazole 5 MG TAB PO SCH (09:09)
--- NOTE | 2018-03-23 14:06 | ASMTBHDC ---
Notes Note: Notes: CC confirmed with client and provider all follow up appts (see below) as well as the agreement that client will be staying at his Father's house for a couple of weeks. [facility] [address] [facility] [address] [place] [address] Next Appt: WednesdayMarch 29 (03/29/18) at 3:45pm. Recommendations: Dr. Colton Lai, PHD [address] [place] [id number] Next Appt: WednesdayMarch 28 (03/28/18) at 10am. Date Signed: 03/23/2018 02:05 PM Electronically Signed By:Ander Brothers
--- NOTE | 2018-03-23 15:04 | BDS ---
REASON FOR ADMISSION: Patient is a 22-year-old male with a history of serious suicide atte mpt via overdose. He was admitted to the hospital initially on March 14 after taking a multidrug overdose, including primarily alprazolam and Adderall. He stated that he had some ambivalence about actually wanting to , but his labs indicated that he had taken a very high amount of medication. He then admitted that he had been essentially stockpiling medications for several months. He vacilla fan between telling the story that he did this on purpose, and then later consolidated to stating blanquita t he simply had extra medicines from inadvertent noncompliance and that he had been tapering the medi cine to stop it over the last month. Regardless, it was felt that the serious nature of the overdose required further investigation, and he was transferred to the [facility] inpatient [facility] on an M1 hold for this purpose. A full description of the events preceding admission can be jyotsna de la rosa in his admission history by Dr. Navarro dated 03/19/2018. ADMITTING DIAGNOSES: Per Dr. Navarro, personality changes and mood lability secondary to traumatic brai n injury; substance-induced mood disorder; amphetamine use disorder, severe; benzodiazepine use disor ruba, severe; alcohol use disorder, severe; rule out major depressive disorder, unknown severity, with out psychosis; limited social supports; family conflicts; precarious employment; and financial proble ms. ADMITTING PHYSICAL EXAMINATION: Not performed due to proximity to recent ICU admission. ADMISSION LABORATORY: Additional labs were not obtained, though a full complement of labs were drawn in the ICU, and these were reviewed prior to admission, with no significant abnormalities. HOSPITAL COURSE: Patient was admitted to [facility] on an M1 hold . He was somewhat reserved, though generally cooperative. He appeared depressed, but stated that he did not believe medicines were helpful to him. He was interviewed individually in treatment plannin g meeting and stated that he did not believe that he was any longer suicidal and that he should be di scharged immediately from the hospital. He stated that he did not like group activities and would no t be participating. The team challenged him to engage in therapies and to work with us to better und erstand his current condition. At no time was he uncooperative, though he preferred to isolate in hi s room and read. I saw him next on 03/22/2018, and he was pleasant and more interactive. He continu ed to state that he did not like to do groups, but was open in discussing the potential need for psyc hotherapy and medication management after discharge. He stated that he had seen a psychotherapist in the past, but that the fit was not good, and that he did not feel like it was helpful. He then inte rviewed several other psychotherapists, all of whom he found to be lacking in connection. He states that he would enjoy talking to a therapist as long as he felt like he connected with that person. I made a recommendation for Ranjit Tee, and he stated that he would consider seeing him. Patient's hospitalization was uncomplicated. I reviewed with him on a daily basis the potential use for medications. I reviewed this with Dr. Jeremy Kern, who is the patient's outpatient provider also, a nd he had similar concerns as I and stated that the patient has not done well on antidepressants in t he past. Dr. Kern is concerned that he could have some form of cycling mood disorder and had been wor griselda with the premise of a treatment-resistant major depression. I reviewed with the patient the pos sible use of atypical antipsychotic medications, including Abilify and Rexulti, and he was agreeable to this. We chose Abilify and started at 5 mg. He took a dose on 03/22 and a dose on 03/23/2018, an d tolerated these well with no side effects. A family meeting was held on 03/23/2018, with the patient, his father, his mother, his stepmother by telephone, his sister, the care mgr and myself present. He was able to articulate his feelin gs around this event, and his family was able to question him regarding his motivations and his curre nt level of thinking. He stated that he felt ashamed for his behaviors and described them as "stupid ." He was adamant that he is glad he did not and that he wanted to continue to work toward a mor e functional status. His family was supportive and stated that he could stay with his father for as long as he needed to after discharge if this was a more supportive environment. The patient was agre eable to that. Further plan was made for him to restart individual psychotherapy as discussed above, and referrals were made for this. I was informed by the care mgr later in the afternoon blanquita t the patient had been able to secure an appointment with Ranjit Tee and Dr. Kern, and we felt lik e he was safe to discharge. He remained adamant that he was no longer feeling suicidal. Was started on a medication that is likely to be helpful and has outpatient followup scheduled. He also has [facility] [employer] resources and supports in place at the time of discharge. CONDITION ON DISCHARGE: Stable. His affect is euthymic, stable and appropriate. His mood is descri bed as "fine." He is voicing no thoughts of suicide. There is no evidence of psychosis. DISCHARGE DIAGNOSES: Major depressive disorder, recurrent, severe, without psychosis. 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 DISCHARGE MEDICATIONS: Abilify 5 mg daily. DISPOSITION: Patient left the hospital with his family to go to his father's home. FOLLOWUP: With Dr. Kern and Ranjit Tee next week on Wednesday and Wednesday. The patient was given wr itten instructions as to dates and times of his appointments at the time of discharge. Patient's attitude was positive at the time of discharge. The patient was placed on a short-term certification at the expiration of his M1 hold as he refused t o stay on a voluntary basis. There are no pending labs or studies at time of discharge. Patient was a full code throughout his stay. The patient was administered nicotine, alcohol, cannabis, and metabolic screenings. The patient was not interested in further specific substance abuse referrals at the time of discharge. /[id number]
== END 2018-03-23 16:02 | disposition home or self-care (01) | DRG 885 ==
LOC: BBEH 16:10
PROVIDERS: ADMIT Registered Nurse; ATTEND Psychiatry & Neurology Psychiatry
DX: F33.2 Major depressive disorder, recurrent severe without psychotic features (principal); S06.9X0S Unspecified intracranial injury without loss of consciousness, sequela; F07.81 Postconcussional syndrome; F06.30 Mood disorder due to known physiological condition, unspecified; F34.1 Dysthymic disorder

== ENCOUNTER 2018-08-13 21:25 | Emergency (ER) | payer BC | END 2018-08-14 17:08 ==